=== PATIENT | male | born 1945 | race Caucasian/White ===

== ENCOUNTER → 2024-07-29 | Outpatient (CLI) | payer MEDICARE, MEDICAID, SELFPAY ==
--- NOTE | 2024-07-29 09:00 | XR_ITS ---
Examination: CT brain head without contrast. 2-D sagittal coronal reconstructions Date and time of exam:July 29, 2024 0846 hours INDICATIONS: Injury to the head 30 years ago, increasing memory loss over the last month CTDI: vol (mGy):50.5 DLP: (mGycm):1021 Technique: Multiple CT axial sections of the brain have been obtained, 5 mm slice thickness. Contrast has not been administered. 2-D sagittal, coronal reconstructions have been obtained Low dose protocols were performed. One or more of the following dose reduction techniques were used; automated exposure control, adjustment of the mA and/or KV according to patient size, use of iterative reconstruction technique. Findings: Right posterior craniotomy defect as well as right temporal craniotomy defect Mild ventricular enlargement Significant atrophy No midline shift No acute hemorrhage either intra or extra-axial Fourth ventricle midline No cranial vault fractures IMPRESSION: Negative for acute hemorrhage mass effect or midline shift Brain MRI follow-up would best assess for chronic multi-infarct dementia pattern
== END | disposition home or self-care (01) ==
DX: R41.3 Other amnesia (principal); Z87.828 Personal history of other (healed) physical injury and trauma; S09.90XS Unspecified injury of head, sequela; X58.XXXS Exposure to other specified factors, sequela
CPT/HCPCS: 70450